=== PATIENT | male | born 1960 | race Caucasian/White ===

== ENCOUNTER 2019-08-08 07:55 | Emergency (ER) | payer OTHER ==
[2019-08-08 08:22] VITALS: BP 147/79
--- NOTE | 2019-08-08 08:34 | UC ---
Back Pain HPI - HPI Summary HPI Summary: mid / lower back pain x 1 day pain is 6 out 10 , no radiation . worse with any movements , better with rest. + injury to his mid / lower back . s/p fall and hit his back on the steps . no lower ext. weakness or numbness no urinary symptoms - History of Current Complaint Chief Complaint: UCBackPain Stated Complaint: S/P FALL LOWER BACK PAIN Time Seen by Provider: 08/08/19 08:00 Hx Obtained From: Patient Onset/Duration: Sudden Onset, Lasting Days - 1, Still Present Timing: Constant Severity Initially: Moderate Severity Currently: Moderate Pain Intensity: 6 Back Pain: Is Discrete @ - lower / mid back Character: Aching Aggravating Factor(s): Movement, Lifting, Bending, Walking, Cough Alleviating Factor(s): Rest, Heat, OTC Meds Associated Signs And Symptoms: Negative: Swelling, Redness, Bruising, Weakness, Numbness, Tingling, Abdominal Pain, Flank Pain, Bladder Incontinence, Bowel Incontinence - Allergies/Home Medications Allergies/Adverse Reactions: Allergies Allergy/AdvReac Type Severity Reaction Status Date / Time No Known Allergies Allergy Verified 08/08/19 08:22 Home Medications: Home Medications Fiber Powder 1 dose PO DAILY PRN 08/08/19 [History Confirmed 08/08/19] Fortify Probiotic 1 tab PO DAILY WITH MEAL 08/08/19 [History Confirmed 08/08/19] Ibuprofen TAB* [Motrin TAB* 800 MG] 1,600 mg PO ONCE PRN 08/08/19 [History Confirmed 08/08/19] Insulin Glargine,Hum.rec.anlog [Toujeo Max Solostar 300 units/ml 2 ml x 3 Pens] 0 units SUBCUT DAILY 08/08/19 [History Confirmed 08/08/19] Lisinopril/Hydrochlorothiazide [Lisinopril-Hctz 10-12.5 mg Tab] 2 each PO DAILY 08/08/19 [History Confirmed 08/08/19] Multivitamin/Iron/Folic Acid [Centrum Adults Tablet] 1 each PO DAILY 08/08/19 [ History Confirmed 08/08/19] Omeprazole 20 mg PO DAILY 08/08/19 [History Confirmed 08/08/19] Sitagliptin Phosphate [Januvia] 100 mg PO DAILY 08/08/19 [History Confirmed ] Vilazodone (NF) [Viibryd (NF)] 20 mg PO DAILY 08/08/19 [History Confirmed ] amLODIPine TAB* [Norvasc 5 mg TAB*] 10 mg PO DAILY 08/08/19 [History Confirmed 08/08/19] buPROPion SR TAB* [Wellbutrin SR TAB*] 150 mg PO BID 08/08/19 [History Confirmed 08/08/19] PMH/Surg Hx/FS Hx/Imm Hx Endocrine History: Diabetes Cardiovascular History: Hypertension Respiratory History: Asthma GI/ History: Diverticulitis - Surgical History Surgical History: Yes - Family History Known Family History: Positive: Cardiac Disease, Hypertension - Social History Alcohol Use: Weekly Alcohol Amount: 6-8 Substance Use Type: None Substance Use Comment - Amount & Last Used: unknown Pt to hospital Smoking Status (MU): Current Some Day Smoker Review of Systems All Other Systems Reviewed And Are Negative: Yes Is Patient Immunocompromised?: No Physical Exam Triage Information Reviewed: Yes Appearance: Well-Appearing, Well-Nourished, Pain Distress Vital Signs: Initial Vital Signs Temp 100.3 F 08/08/19 08:13 Pulse 82 08/08/19 08:13 Resp 18 08/08/19 08:13 BP 147/79 08/08/19 08:13 Pulse Ox 98 08/08/19 08:13 Vital Signs Reviewed: Yes Eye Exam: Normal Eyes: Positive: Conjunctiva Clear ENT: Positive: Normal ENT inspection, Hearing grossly normal, Pharynx normal Neck: Positive: Supple, Nontender, No Lymphadenopathy Respiratory: Positive: Chest non-tender, Lungs clear, Normal breath sounds, No respiratory distress Cardiovascular: Positive: RRR, No Murmur, Pulses Normal Abdominal Exam: Normal Abdomen Description: Positive: Nontender, Soft. Negative: CVA Tenderness (R), CVA Tenderness (L), Distended, Guarding Bowel Sounds: Positive: Present Musculoskeletal: Positive: Other: - back exam / thoracic spine : no swelling, no bruising , tenderness lower thoracic are limited ROM on flexion / extension and rotation , Diagnostics - Radiology No standard instances Radiology Interpretation Completed By: Radiologist Summary of Radiographic Findings: xray thoracic spine : IMPRESSION: DEGENERATIVE DISC DISEASE. Back Pain Course/Dx - Differential Dx/Diagnosis Provider Diagnosis: Contusion of lower back Discharge ED - Sign-Out/Discharge Documenting (check all that apply): Patient Departure All imaging exams completed and their final reports reviewed: Yes - Discharge Plan Condition: Stable Disposition: HOME Prescriptions: Cyclobenzaprine TAB* [Flexeril 10 MG TAB*] 10 mg PO BID PRN #14 tab PRN Reason: Pain - Moderate Naproxen [Naproxen 500 mg tab] 500 mg PO BID #14 tablet. Patient Education Materials: Acute Low Back Pain (ED) Referrals: Murphy Vasquez PA [Primary Care Provider] - 7 Days - Billing Disposition and Condition Condition: STABLE Disposition: Home
== END 2019-08-08 09:04 | disposition home or self-care (01) ==
LOC: UCCORT 07:55
DX: S30.0XXA Contusion of lower back and pelvis, initial encounter (principal); M51.34 Other intervertebral disc degeneration, thoracic region; E11.9 Type 2 diabetes mellitus without complications; I10 Essential (primary) hypertension; J45.909 Unspecified asthma, uncomplicated; F17.200 Nicotine dependence, unspecified, uncomplicated; Z79.4 Long term (current) use of insulin; Z79.899 Other long term (current) drug therapy; W01.198A Fall on same level from slipping, tripping and stumbling with subsequent striking against other object, initial encounter; Y92.9 Unspecified place or not applicable
CPT/HCPCS: 72070; 99212; G0463